=== PATIENT | male | born 1960 | race Caucasian/White ===

== ENCOUNTER 2017-09-17 15:44 | Emergency (ER) | payer OTHER, BC, SELFPAY ==
[2017-09-17] MEDS ORDERED: MORPHINE SULFATE 10 MG/ML (16:13)
[2017-09-17] MEDS: MORPHINE SULFATE 10 MG/ML IM (16:19)
[2017-09-17] MEDS ORDERED: XYLOCAINE 1%/Epi 1:100000 MDV 20 ML (16:28)
[2017-09-17] MEDS ORDERED: KEFLEX 500 MG (17:18)
[2017-09-17] MEDS ORDERED: NORCO 5/325 MG (17:19)
[2017-09-17] MEDS ORDERED: BACTRIM DS TABLET PO (17:19)
[2017-09-17] MEDS: BACTRIM DS TABLET PO (17:27)
[2017-09-17] MEDS: NORCO 5/325 MG PO (17:28)
[2017-09-17] MEDS: KEFLEX 500 MG PO (17:28)
[2017-09-17] MEDS: XYLOCAINE 1%/Epi 1:100000 MDV 20 ML IJ (17:29)
== END 2017-09-17 17:45 | disposition home or self-care (01) ==
LOC: ED 15:44
CPT/HCPCS: 87070; 96372; J2270

== ENCOUNTER 2019-12-12 18:50 | Emergency (ER) | payer OTHER ==
[2019-12-12] MEDS ORDERED: Adacel Vial IM ONE ×2 (19:19→19:25)
[2019-12-12] MEDS ORDERED: XYLOCAINE 2% HCL 20 ML MDV IJ ONE (19:20)
[2019-12-12] MEDS ORDERED: TORAdol 30 mg Injection IM ONE (19:21)
[2019-12-12] MEDS ORDERED: XYLOCAINE 1% HCL 20 ML MDV ONE (19:23)
[2019-12-12 19:24] VITALS: O2SAT 98
[2019-12-12] MEDS ORDERED: TORAdol 30 mg Injection ONE (19:25)
--- NOTE | 2019-12-12 19:40 | ERPHSYRPT ---
- History of Present Illness Time Seen by Provider: 12/12/19 19:20 Source: patient Exam Limitations: no limitations Patient Subjective Stated Complaint: pt states that he woke up monday morning with redness to left lower leg, pt states that he [facility], pt states that he was prescribed sulfamethoxaz-ole and mupirocin 2%, pt states that he has been soaking his foot in epison salt, pt states that white areas popped up last night, pt states that he has been trying to staying off it due to pain, pt states that pain is radiating to neck Triage Nursing Assessment: pt ambulated into the er, pt is axo x3, pt has redness to LLE, pustule present to left ankle area, 3 pustule present to area, pt c/o 8/10 pain to LLE, hypertensive, wheezing in all lobes, clear heart tones, hyperactive bowel sounds Physician History: Patient is a 59-year-old male presents to our ED for evaluation and treatment of the left lower leg wound which he suspects is due to an insect bite. Possible spider bite. Patient awoke Monday morning with the symptoms. Patient went [facility] yesterday. Patient was evaluated and started on Bactrim mupirocin 2%. Is also been soaking his involved extremity and Epson salt. However patient states his pain has not improved. Pain described as an ache that is well localized. No radiation. Pain worse with palpation and movement. Pain improved with rest. Patient is otherwise healthy. He voices no other complaints at this time. Timing/Duration: day(s) (Days.) Quality: other (Ache) Severity: moderate Location: other (Left posterior lateral ankle.) Possible Causes: insect bite (insect Bite suspected.), other Modifying Factors: Improves With: other (Palpation worsen symptoms.) Associated Symptoms: No difficulty breathing, No flushing, No nasal congestion, No paresthesia, No sore throat Allergies/Adverse Reactions: No Known Drug Allergies Allergy (Verified 12/12/19 19:24) Home Medications: Eszopiclone [Lunesta] 3 mg PO HS 12/12/19 [History] Levothyroxine Sodium [Synthroid] 25 mcg PO DAILY 12/12/19 [History] Meloxicam 7.5 mg PO DAILY 12/12/19 [History] Mupirocin [Bactroban OINTMENT] 22 gm TP TID 12/12/19 [History] Sulfamethoxazole/Trimethoprim [Sulfamethoxazole-Tmp Ds Tablet] 1 each PO BID 12/12/19 [History] Tizanidine HCl 4 mg [Zanaflex 4 MG] 4 mg PO HS 12/12/19 [History] Hx Tetanus, Diphtheria Vaccination/Date Given: Yes (2 yrs ago) Hx Influenza Vaccination/Date Given: No Hx Pneumococcal Vaccination/Date Given: No Travel Risk - International Travel Have you traveled outside of the country in past 3 weeks: No - Coronavirus Screening Close contact with a COVID-19 positive Pt in past 14-21 Days: No - Review of Systems Constitutional: No Symptoms, No Fever, No Chills Eyes: No Symptoms Ears, Nose, & Throat: No Symptoms Respiratory: No Symptoms, No Cough, No Dyspnea Cardiac: No Symptoms, No Chest Pain, No Edema, No Syncope Abdominal/Gastrointestinal: No Symptoms, No Abdominal Pain, No Nausea, No Vomiting, No Diarrhea Genitourinary Symptoms: No Symptoms, No Dysuria Musculoskeletal: No Symptoms, No Back Pain, No Neck Pain Skin: No Symptoms, No Rash Neurological: No Symptoms, No Dizziness, No Focal Weakness, No Sensory Changes Psychological: No Symptoms Endocrine: No Symptoms Hematologic/Lymphatic: No Symptoms All Other Systems: Reviewed and Negative - Past Medical History Pertinent Past Medical History: Yes Neurological History: No Pertinent History ENT History: No Pertinent History Cardiac History: Hypertension Respiratory History: No Pertinent History Endocrine Medical History: Hypothyroidism Musculoskeletal History: Osteoarthritis GI Medical History: No Pertinent History History: No Pertinent History Psycho-Social History: Depression, Other Male Reproductive Disorders: No Pertinent History Other Medical History: Back surgeries in 1990 and 1992. Hernia surgery December 2018 - Past Surgical History Past Surgical History: Yes Neuro Surgical History: No Pertinent History Cardiac: No Pertinent History Respiratory: No Pertinent History Gastrointestinal: Appendectomy Genitourinary: No Pertinent History Musculoskeletal: Orthopedic Surgery Male Surgical History: No Pertinent History Other Surgical History: TORN ROTATOR CUFF REPAIR A FEW YRS AGO. back surgery in 1990 and 1992 - Social History Smoking Status: Current every day smoker How long have you smoked: 40 Exposure to second hand smoke: Yes Drug Use: none Patient Lives Alone: No - Nursing Vital Signs Nursing Vital Signs: Initial Vital Signs Temperature 98.1 F 12/12/19 19:07 Pulse Rate 97 H 12/12/19 19:07 Respiratory Rate 18 12/12/19 19:07 Blood Pressure 153/115 12/12/19 19:07 O2 Sat by Pulse Oximetry 98 12/12/19 19:07 Pain Scale Pain Intensity 8 - Physical Exam General Appearance: no apparent distress, alert Eye Exam: PERRL/EOMI, eyes nml inspection Ears, Nose, Throat Exam: normal ENT inspection, pharynx normal, moist mucous membranes Neck Exam: normal inspection, non-tender, supple, full range of motion Respiratory Exam: normal breath sounds, lungs clear, No respiratory distress Cardiovascular Exam: regular rate/rhythm, normal heart sounds Gastrointestinal/Abdomen Exam: soft, mass, No tenderness Back Exam: normal inspection, normal range of motion, No CVA tenderness, No vertebral tenderness Extremity Exam: normal inspection, normal range of motion Neurologic Exam: alert, oriented x 3, cooperative, normal mood/affect, sensation nml, No motor deficits Skin Exam: normal color, warm, dry, other (Left posterior lateral ankle presents with a 1.5 cm abscess with fluctuance. There are pustules at the surface. No lymphangitis. No lymphadenopathy. The area is tender. Extremities neurovascular intact distally no crepitus or indication of subcutaneous emphysema..) Lymphatic Exam: No adenopathy SpO2 Interpretation: normal SpO2: 98 O2 Delivery: Room Air Procedures - Incision and Drainage Site: Left posterior lateral ankle. Anesthesia: 1% Lidocaine cc's of anesthesia: 4 Blade Size: 11 I & D Procedure: betadine prep Results: small amount pus Progress: Patient tolerated procedure well. No complications. Patient neurovascular intact distally post procedure. - Course Nursing assessment & vital signs reviewed: Yes Ordered Tests: Active Orders 24 hr Category Date Time Status CULTURE,ABSCESS Stat Lab 12/12/19 Uncollected Medication Summary Discontinued Medications Generic Name Dose Route Start Last Admin Trade Name Freq PRN Reason Stop Dose Admin Diphtheria/Tetanus/Acell Pertussis 0.5 ml 12/12/19 19:19 12/12/19 19:30 Adacel Vial IM 12/12/19 19:20 0.5 ml .ONCE ONE Administration Diphtheria/Tetanus/Acell Pertussis Confirm 12/12/19 19:25 Adacel Vial Administered 12/12/19 19:26 Dose 0.5 ml IM .STK-MED ONE Ketorolac Tromethamine 30 mg 12/12/19 19:21 12/12/19 19:29 Toradol 30 Mg Injection IM 12/12/19 19:22 30 mg STAT ONE Administration Ketorolac Tromethamine Confirm 12/12/19 19:25 Toradol 30 Mg Injection Administered 12/12/19 19:26 Dose 30 mg .ROUTE .STK-MED ONE Lidocaine HCl 5 ml 12/12/19 19:20 12/12/19 19:31 Xylocaine 2% Hcl 20 Ml Mdv IJ 12/12/19 19:21 Not Given STAT ONE Lidocaine HCl Confirm 12/12/19 19:23 Xylocaine 1% Hcl 20 Ml Mdv Administered 12/12/19 19:24 Dose 10 ml .ROUTE .STK-MED ONE - Progress Progress: improved Progress Note: 12/12/19 19:47 59-year-old male with a wound to the left lateral ankle presumably from an insect bite. Wound is well localized. No lymphangitis no lymphadenopathy. Patient received Toradol for pain control. Tetanus was updated. Patient currently on Bactrim. Patient advised to continue taking the Bactrim as prescribed. The wound was incised and drained. Scant amount of purulent material expressed. Cultures obtained and forwarded for culture and sensitivity. Wound is dressed. Patient neurovascular intact post procedure. Plan of care discussed with patient. He agrees to follow-up with his primary care physician on Monday as currently scheduled. Counseled pt/family regarding: diagnosis, need for follow-up - Departure Departure Disposition: Home Clinical Impression: Abscess, Insect bite Condition: Stable Critical Care Time: No Referrals: YA CARDONA [Primary Care Provider] - Additional Instructions: Discharge/Care Plan JUMA CANALESAN was seen on 12/12/19 in the Emergency Room. The patient was counseled regarding Diagnosis,Lab results, Imaging studies, need for follow up and when to return to the Emergency Room. Prescriptions given: Discharge Note I have spoken with the patient and/or caregivers. I have explained the patient's condition, diagnosis and treatment plan based on the information available to me at this time. I have answered the patient's and/or caregiver's questions and addressed any concerns. The patient and/or caregivers have as good understanding of the patient's diagnosis, condition and treatment plan as can be expected at this point. The vital signs have been stable. The patient's condition is stable and appropriate for discharge from the emergency department. The patient will pursue further outpatient evaluation with the primary care physician or other designated or consulting physician as outlined in the discharge instructions. The patient and/or caregivers are agreeable to this plan of care and follow-up instructions have been explained in detail. The patient and/or caregivers have received these instruction. The patient/and or caregivers are aware that any significant change in condition or worsening of symptoms should prompt an immediate return to this or the closest emergency department or call 911.
[2019-12-12 19:52] VITALS: BP 153/75; PULSE 83
== END 2019-12-12 19:52 | disposition home or self-care (01) ==
LOC: ED 18:50
DX: L02.416 Cutaneous abscess of left lower limb (principal); S90.562A Insect bite (nonvenomous), left ankle, initial encounter
CPT/HCPCS: 87070; 90471; 90715; 96372; 99284; J1885

== ENCOUNTER 2020-05-22 19:48 | Emergency (ER) | payer OTHER ==
[2020-05-22] MEDS ORDERED: BENADRYL 50 MG/ML IV ONE (20:04)
[2020-05-22] MEDS ORDERED: Inapsine 5 MG/2 ML IV ONE (20:04)
[2020-05-22] MEDS ORDERED: Sodium Chloride 0.9% 1000 ML 1,000 ML IV STA (20:04)
[2020-05-22] MEDS ORDERED: TORAdol 30 mg Injection IV ONE (20:04)
[2020-05-22 20:09] VITALS: PULSE 86; O2SAT 99
[2020-05-22] MEDS ORDERED: TORAdol 30 mg Injection ONE (20:15)
[2020-05-22] MEDS ORDERED: Inapsine 5 MG/2 ML ONE (20:15)
[2020-05-22] MEDS ORDERED: BENADRYL 50 MG/ML ONE (20:15)
[2020-05-22] MEDS ORDERED: Sodium Chloride 0.9% 1000 ML 1,000 ML ONE (20:15)
--- NOTE | 2020-05-22 20:16 | ERPHSYRPT ---
- History of Present Illness Time Seen by Provider: 05/22/20 19:52 Source: patient Exam Limitations: no limitations Patient Subjective Stated Complaint: "I've been constipated and now my stomach hurts." Triage Nursing Assessment: . Physician History: Patient is here with abdominal pain and constipation. Has been going on for greater than 1 week. He has 1 previous emergency department visit at [place]. States that they performed a CT scan 1 week ago. They did not find anything. He had a colonoscopy done in January,. He states he had this done because he has been having continuing ongoing chronic abdominal pain with intermittent constipation. Last bowel movement was yesterday it was only a very little bit. Patient has been doing MiraLAX. Location: abdomen Quality: sharp Radiation: into back Severity: moderate Duration: acute on chronic Timing: gradual Modifying factors/associated signs and symptoms: home miralax, previous ER visit Timing/Duration: today Severity: moderate Modifying Factors: Improves With: movement Associated Symptoms: nausea, abdominal pain Allergies/Adverse Reactions: No Known Drug Allergies Allergy (Verified 05/22/20 19:59) Home Medications: Eszopiclone [Lunesta] 3 mg PO HS 12/12/19 [History] Levothyroxine Sodium [Synthroid] 25 mcg PO DAILY 12/12/19 [History] Meloxicam 7.5 mg PO DAILY 12/12/19 [History] Hx Tetanus, Diphtheria Vaccination/Date Given: Yes Hx Influenza Vaccination/Date Given: No Hx Pneumococcal Vaccination/Date Given: No Travel Risk - International Travel Have you traveled outside of the country in past 3 weeks: No - Coronavirus Screening Are you exhibiting any of the following symptoms?: No Close contact with a COVID-19 positive Pt in past 14-21 Days: No - Review of Systems Constitutional: No Fever, No Chills Eyes: No Symptoms Ears, Nose, & Throat: No Symptoms Respiratory: No Cough, No Dyspnea Cardiac: No Chest Pain, No Edema, No Syncope Abdominal/Gastrointestinal: Abdominal Pain, Nausea, Constipation, No Vomiting, No Diarrhea Genitourinary Symptoms: No Dysuria Musculoskeletal: No Back Pain, No Neck Pain Skin: No Rash Neurological: No Dizziness, No Focal Weakness, No Sensory Changes Psychological: No Symptoms Endocrine: No Symptoms All Other Systems: Reviewed and Negative - Past Medical History Pertinent Past Medical History: Yes Neurological History: No Pertinent History ENT History: No Pertinent History Cardiac History: Hypertension Respiratory History: No Pertinent History Endocrine Medical History: Hypothyroidism Musculoskeletal History: Osteoarthritis GI Medical History: No Pertinent History History: No Pertinent History Psycho-Social History: Depression, Other Male Reproductive Disorders: No Pertinent History Other Medical History: Back surgeries in 1990 and 1992. Hernia surgery December 2018. polycythemia - Past Surgical History Past Surgical History: Yes Neuro Surgical History: No Pertinent History Cardiac: No Pertinent History Respiratory: No Pertinent History Gastrointestinal: Appendectomy Genitourinary: No Pertinent History Musculoskeletal: Orthopedic Surgery Male Surgical History: No Pertinent History Other Surgical History: TORN ROTATOR CUFF REPAIR A FEW YRS AGO. back surgery in 1990 and 1992 - Social History Smoking Status: Current every day smoker How long have you smoked: 40 Exposure to second hand smoke: Yes Drug Use: marijuana Patient Lives Alone: No - Nursing Vital Signs Nursing Vital Signs: Initial Vital Signs Temperature 98.5 F 05/22/20 19:48 Pulse Rate 86 05/22/20 19:48 Respiratory Rate 18 05/22/20 19:48 Blood Pressure 186/107 05/22/20 19:48 O2 Sat by Pulse Oximetry 99 05/22/20 19:48 Pain Scale Pain Intensity 2 - Physical Exam General Appearance: no apparent distress, alert Eye Exam: PERRL/EOMI, eyes nml inspection Ears, Nose, Throat Exam: normal ENT inspection, TMs normal, pharynx normal, moist mucous membranes Neck Exam: normal inspection, non-tender, supple, full range of motion Respiratory Exam: normal breath sounds, lungs clear, No respiratory distress Cardiovascular Exam: regular rate/rhythm, normal heart sounds, normal peripheral pulses Gastrointestinal/Abdomen Exam: soft, normal bowel sounds, tenderness (Left lower abdominal tenderness without rebound or guarding.), No mass Back Exam: normal inspection, normal range of motion, No CVA tenderness, No vertebral tenderness Extremity Exam: normal inspection, normal range of motion, pelvis stable Neurologic Exam: alert, oriented x 3, cooperative, normal mood/affect, nml cerebellar function, nml station & gait, sensation nml, No motor deficits Skin Exam: normal color, warm, dry, No rash Lymphatic Exam: No adenopathy SpO2: 99 - Course Nursing assessment & vital signs reviewed: Yes EKG Interpreted by Me: Sinus Rhythm Ordered Tests: Active Orders 24 hr Category Date Time Status EKG-ER Only STAT Care 05/22/20 20:04 Active IV Insertion STAT Care 05/22/20 20:04 Active ABDOMEN AND PELVIS W CONTRAST [CT] Stat Exams 05/22/20 20:05 Taken CBC W DIFF Stat Lab 05/22/20 20:04 Completed CMP Stat Lab 05/22/20 20:04 Completed LIPASE Stat Lab 05/22/20 20:04 Completed TROPONIN Q3H Lab 05/22/20 20:15 Completed TROPONIN Q3H Lab 05/22/20 23:15 Ordered TROPONIN Q3H Lab 05/23/20 02:15 Ordered TROPONIN Q3H Lab 05/23/20 05:15 Ordered TROPONIN Q3H Lab 05/23/20 08:15 Ordered UA W/RFX UR CULTURE Stat Lab 05/22/20 20:04 Ordered Medication Summary Discontinued Medications Generic Name Dose Route Start Last Admin Trade Name Freq PRN Reason Stop Dose Admin Diphenhydramine HCl 25 mg 05/22/20 20:04 05/22/20 20:19 Benadryl 50 Mg/Ml IV 05/22/20 20:05 25 mg STAT ONE Administration Diphenhydramine HCl Confirm 05/22/20 20:15 Benadryl 50 Mg/Ml Administered 05/22/20 20:16 Dose 50 mg .ROUTE .STK-MED ONE Droperidol 1.25 mg 05/22/20 20:04 05/22/20 20:18 Inapsine 5 Mg/2 Ml IV 05/22/20 20:05 1.25 mg STAT ONE Administration Droperidol Confirm 05/22/20 20:15 Inapsine 5 Mg/2 Ml Administered 05/22/20 20:16 Dose 5 mg .ROUTE .STK-MED ONE Sodium Chloride 1,000 mls @ 999 mls/hr 05/22/20 20:04 05/22/20 20:17 Sodium Chloride 0.9% 1000 Ml IV 05/22/20 21:04 999 mls/hr .Q1H1M STA Administration Sodium Chloride Confirm 05/22/20 20:15 Sodium Chloride 0.9% 1000 Ml Administered 05/22/20 20:16 Dose 1,000 mls @ ud .ROUTE .STK-MED ONE Ketorolac Tromethamine 30 mg 05/22/20 20:04 05/22/20 20:17 Toradol 30 Mg Injection IV 05/22/20 20:05 30 mg STAT ONE Administration Ketorolac Tromethamine Confirm 05/22/20 20:15 Toradol 30 Mg Injection Administered 05/22/20 20:16 Dose 30 mg .ROUTE .STK-MED ONE Lab/Rad Data: Laboratory Result Diagrams 05/22/20 20:04 05/22/20 20:04 Laboratory Results 05/22/20 05/22/20 05/22/20 Range/Units 20:15 20:04 20:04 WBC 10.6 H (4.0-10.5) K/mm3 RBC 5.52 (4.1-5.6) M/mm3 Hgb 17.3 (12.5-18.0) gm/dl Hct 51.2 H (42-50) % MCV 92.8 (78-100) fl MCH 31.3 (26-32) pg MCHC 33.8 (32-36) g/dl RDW 13.5 (11.5-14.0) % Plt Count 301 (150-450) K/mm3 MPV 8.9 (7.5-11.0) fl Gran % 64.1 (36.0-66.0) % Eos # (Auto) 0.28 (0-0.5) Absolute Lymphs (auto) 2.73 (1.0-4.6) Absolute Monos (auto) 0.76 (0.0-1.3) Lymphocytes % 25.7 (24.0-44.0) % Monocytes % 7.2 (0.0-12.0) % Eosinophils % 2.6 (0.00-5.0) % Basophils % 0.4 (0.0-0.4) % Absolute Granulocytes 6.80 (1.4-6.9) Basophils # 0.04 (0-0.4) Sodium 136 L (137-145) mmol/L Potassium 4.8 (3.5-5.1) mmol/L Chloride 107 (98-107) mmol/L Carbon Dioxide 24 (22-30) mmol/L Anion Gap 10.2 (5-15) MEQ/L BUN 17 (9-20) mg/dL Creatinine 0.79 (0.66-1.25) mg/dL Estimated GFR > 60.0 ML/MIN Glucose 98 (74-106) mg/dL Calcium 9.1 (8.4-10.2) mg/dL Total Bilirubin 0.70 (0.2-1.3) mg/dL AST 27 (17-59) U/L ALT 10 (0-50) U/L Alkaline Phosphatase 76 (38-126) U/L Troponin I < 0.012 (0.000-0.034) ng/mL Serum Total Protein 7.9 (6.3-8.2) g/dL Albumin 4.6 (3.5-5.0) g/dL Lipase 67 (23-300) U/L - Progress Progress Note: 05/22/20 20:15 differential diagnosis includes kidney stone, compression fracture, infection, UTI, triple AAA - basic labs including: CBC, lipase, CMP, - insert IV for fluids, pain meds, nausea control - consider imaging: CT ab/pelvis 05/22/20 21:58 CT scan shows no obstruction, constipation, obvious cancer, other mechanical issue. I did recommend patient follow back up with his GI physician, primary care physician. He will need to return here for any new or changing symptoms. Overall patient's pain is improved on reexam. Plan of care was discussed with patient and all questions answered. The patient is agreeable to be discharged home and both verbal and printed discharge instructions were provided.The patient agreed to seek outpatient follow up as discussed. The patient was given strict instructions to return to the emergency department for worsening symptoms or any other emergent concerns. The patient verbalized understanding. Counseled pt/family regarding: lab results, diagnosis, need for follow-up - Departure Departure Disposition: Home Clinical Impression: Constipation Condition: Stable Critical Care Time: No Referrals: [facility] [Primary Care Provider] - Instructions: Constipation, Adult (DC)
[2020-05-22 20:18] LABS: BASOPHIL % 0.4 % (0.0-0.4); Basophil (Absolute #) 0.04 (0-0.4); Eosinophil % 2.6 % (0.00-5.0); Eosinophil (Absolute #) 0.28 (0-0.5); Hematocrit 51.2 % (42-50); Hemoglobin 17.3 gm/dl (12.5-18.0); Lymphocyte (Absolute #) 2.73 (1.0-4.6); Lymphocytes % 25.7 % (24.0-44.0); Mean Cell Volume 92.8 fl (78-100); Mean Corpuscular Hemoglobin 31.3 pg (26-32); Mean Corpuscular Hgb Concent. 33.8 g/dl (32-36); Mean Platelet Volume 8.9 fl (7.5-11.0); Monocyte (Absolute #) 0.76 (0.0-1.3); Monocytes % 7.2 % (0.0-12.0); Neutrophil % 64.1 % (36.0-66.0); Platelet Count 301 K/mm3 (150-450); Red Blood Count 5.52 M/mm3 (4.1-5.6); Red Cell Distribution Width 13.5 % (11.5-14.0); White Blood Count 10.6 K/mm3 (4.0-10.5)
[2020-05-22 20:29] LABS: ALBUMIN 4.6 g/dL (3.5-5.0); ALKALINE PHOSPHATASE 76 U/L (38-126); ANION GAP 10.2 MEQ/L (5-15); BLOOD UREA NITROGEN 17 mg/dL (9-20); CHLORIDE 107 mmol/L (98-107); Calcium 9.1 mg/dL (8.4-10.2); Carbon Dioxide 24 mmol/L (22-30); Creatinine 1 0.79 mg/dL (0.66-1.25); EST GLOMERULAR FILTRATION RATE > 60.0 ML/MIN; Glucose 98 mg/dL (74-106); LIPASE 67 U/L (23-300); Potassium 4.8 mmol/L (3.5-5.1); SGOT/AST 27 U/L (17-59); SGPT/ALT 10 U/L (0-50); SODIUM 136 mmol/L (137-145); Total Protein 7.9 g/dL (6.3-8.2)
[2020-05-22 21:54] VITALS: BP 161/91
--- NOTE | 2020-05-23 07:54 | XRAY ---
Indication: Left upper quadrant pain. Abnormal bowel movements. Multiple contiguous axial images obtained through the abdomen and pelvis using 80 cc of Isovue-370 contrast only. Comparison: CT renal stone study September 08, 2010. Lung bases demonstrates mild bibasilar dependent atelectasis. No infiltrate or effusion. Heart is not enlarged. Visualized distal esophagus demonstrates circumferential wall thickening, possible reflux esophagitis. Noncontrasted stomach and bowel loops appear nonobstructed. Appendectomy reported. Scattered descending and sigmoid diverticulosis. No free fluid/air. A few bilateral renal cysts, largest right lower pole measuring 1.5 cm. Remaining liver, gallbladder, pancreas, spleen, adrenal glands, kidneys, ureters, and bladder are unremarkable. Moderate scattered aortoiliac calcifications. No AAA or pathological retroperitoneal lymphadenopathy. Osseous structures intact again with minimal degenerative changes throughout the spine, L5 laminectomy, and minimal grade 1 L5 spondylolisthesis. Impression: 1. Distal esophageal wall thickening. Rule out reflux esophagitis. 2. Incidental colonic diverticulosis, bilateral renal cysts, and chronic bony findings. 3. Remaining CT abdomen/pelvis with contrast exam is negative. Comment: Preliminary interpretation was made by [facility]. No critical discrepancy.
== END 2020-05-22 22:02 | disposition home or self-care (01) ==
LOC: ED 19:48
DX: K59.00 Constipation, unspecified (principal)
CPT/HCPCS: 36000; 36415; 74177; 80053; 83690; 84484; 85025; 93005; 96360; 96374; 96375; 99284; J1200; J1885

== ENCOUNTER 2021-04-14 09:27 | Day surgery (SDC) | payer OTHER ==
[2021-04-14] MEDS ORDERED: BUPIVACAINE 0.5% VIAL IJ ONE (09:28)
[2021-04-14] MEDS ORDERED: Depo-Medrol 40 MG/ML IM ONE (09:28)
[2021-04-14] MEDS ORDERED: Lactated Ringers 1,000 ML IV ONE (10:44)
[2021-04-14] MEDS ORDERED: DIPRIVAN 200 MG/20 ML IV ONE (11:21)
--- NOTE | 2021-04-14 13:00 | XRAY ---
Indication: Right SI joint injection. Intraoperative fluoroscopy provided for 14 seconds. Single lateral digital spot image submitted for interpretation demonstrates posterior needle tip projecting mid sacrum. Correlate with intraoperative findings/report.
--- NOTE | 2021-04-14 13:00 | XRAY ---
14 seconds fluoroscopy time in surgery for injection of the right SI joint.
== END 2021-04-14 11:45 | disposition home or self-care (01) ==
LOC: SDC-PAIN 09:27
PROVIDERS: ATTEND Psychiatry & Neurology Pain Medicine
DX: M46.1 Sacroiliitis, not elsewhere classified (principal); I10 Essential (primary) hypertension; E03.9 Hypothyroidism, unspecified; M19.90 Unspecified osteoarthritis, unspecified site; Z79.899 Other long term (current) drug therapy
CPT/HCPCS: 27096; 72020; 77002; G0260; J1030; J2704

== ENCOUNTER 2021-05-05 13:15 | Day surgery (SDC) | payer OTHER ==
[2021-05-05] MEDS ORDERED: Sodium Chloride 0.9% 10 ML FLUSH Syringe IJ ONE (13:16)
[2021-05-05] MEDS ORDERED: Depo-Medrol 40 MG/ML IM ONE (13:16)
[2021-05-05] MEDS ORDERED: DIPRIVAN 200 MG/20 ML IV ONE (14:47)
[2021-05-05] MEDS ORDERED: Lactated Ringers 1,000 ML IV ONE ×2 (14:50→15:28)
--- NOTE | 2021-05-05 16:40 | XRAY ---
Indication: Right L3-L5 transforaminal LOLITA. Intraoperative fluoroscopy provided for 24 seconds. 3 digital spot images submitted for interpretation demonstrates posterior needle tips projecting over the expected right L3 and L4 nerve roots. Small amount of contrast injected for needle tip placement. Correlate with intraoperative findings/report.
--- NOTE | 2021-05-05 16:44 | XRAY ---
24 seconds fluoroscopy time in surgery for right L3-L5 transforaminal LOLITA.
== END 2021-05-05 15:13 | disposition home or self-care (01) ==
LOC: SDC-PAIN 13:15
PROVIDERS: ATTEND Psychiatry & Neurology Pain Medicine
DX: M54.16 Radiculopathy, lumbar region (principal); I10 Essential (primary) hypertension; E03.9 Hypothyroidism, unspecified; Z79.899 Other long term (current) drug therapy
CPT/HCPCS: 64483; 64484; 72100; 77003; J1030; J2704; Q9966

== ENCOUNTER 2021-05-20 07:42 | Day surgery (SDC) | payer OTHER ==
[2021-05-20] MEDS ORDERED: Sodium Chloride 0.9% 10 ML FLUSH Syringe IJ ONE (07:43)
[2021-05-20] MEDS ORDERED: Depo-Medrol 40 MG/ML IM ONE (07:43)
[2021-05-20] MEDS ORDERED: Lactated Ringers 1,000 ML IV ONE (08:27)
[2021-05-20] MEDS ORDERED: DIPRIVAN 200 MG/20 ML IV ONE (09:14)
--- NOTE | 2021-05-20 09:49 | XRAY ---
Indication: Right L3-L5 transforaminal LOLITA. Intraoperative fluoroscopy provided for 26 seconds. 3 digital spot image submitted for interpretation demonstrates posterior needle tips projecting over the expected right L3 and L4 nerve roots. Small amount of contrast injected for needle tip placement. Correlate with intraoperative findings/report.
--- NOTE | 2021-05-20 10:40 | XRAY ---
26 seconds fluoroscopy time in surgery for right L3-L5 transforaminal LOLTIA.
== END 2021-05-20 09:40 | disposition home or self-care (01) ==
LOC: SDC-PAIN 07:42
PROVIDERS: ATTEND Psychiatry & Neurology Pain Medicine
DX: M54.16 Radiculopathy, lumbar region (principal); I10 Essential (primary) hypertension; Z79.899 Other long term (current) drug therapy
CPT/HCPCS: 64493; 64494; 72100; 77002; J1030; J2704; Q9966

== ENCOUNTER 2022-06-08 08:29 | Day surgery (SDC) | payer OTHER ==
[2022-06-08] MEDS ORDERED: Depo-Medrol 40 MG/ML IM ONE (08:30)
[2022-06-08] MEDS ORDERED: Sodium Chloride 0.9(Preservative Free) 10 ML IJ ONE (08:30)
[2022-06-08] MEDS ORDERED: DIPRIVAN 200 MG/20 ML IV ONE (10:00)
--- NOTE | 2022-06-08 10:49 | XRAY ---
Indication: Right L3-L5 transforaminal LOLITA. Intraoperative fluoroscopy provided for 35 seconds. 5 digital spot images submitted for interpretation demonstrates posterior needle tips projecting over the expected right L3 and L4 nerve roots. Small amount of contrast injected for needle tip placement. Correlate with intraoperative findings/report.
--- NOTE | 2022-06-08 12:22 | XRAY ---
35 seconds of fluoroscopy was used in surgery for a right L3-L5 transforaminal LOLITA.
[2022-06-08] MEDS ORDERED: Lactated Ringers 1,000 ML IV ONE (15:27)
== END 2022-06-08 10:30 | disposition home or self-care (01) ==
LOC: SDC-PAIN 08:29
PROVIDERS: ATTEND Psychiatry & Neurology Pain Medicine
DX: M54.16 Radiculopathy, lumbar region (principal); Z79.899 Other long term (current) drug therapy
CPT/HCPCS: 64483; 64484; 72100; 77003; J1030; J2704; Q9966

== ENCOUNTER 2022-06-22 10:22 | Day surgery (SDC) | payer OTHER ==
[2022-06-22] MEDS ORDERED: Sodium Chloride 0.9(Preservative Free) 10 ML IJ ONE (10:23)
[2022-06-22] MEDS ORDERED: Depo-Medrol 40 MG/ML IM ONE (10:23)
[2022-06-22] MEDS ORDERED: DIPRIVAN 200 MG/20 ML IV ONE (12:23)
--- NOTE | 2022-06-22 13:18 | XRAY ---
Indication: Right L3-L5 transforaminal LOLITA. Intraoperative fluoroscopy provided for 32 seconds. 5 digital spot images submitted for interpretation demonstrates posterior needle tips projecting over the expected right L3 and L4 nerve roots. Small amount of contrast injected for needle tip placement. Correlate with intraoperative findings/report.
--- NOTE | 2022-06-22 13:46 | XRAY ---
32 seconds of fluoroscopy was used in surgery for a right L3-L5 transforaminal LOLITA.
[2022-06-22] MEDS ORDERED: Lactated Ringers 1,000 ML IV ONE (14:07)
== END 2022-06-22 12:57 | disposition home or self-care (01) ==
LOC: SDC-PAIN 10:22
PROVIDERS: ATTEND Psychiatry & Neurology Pain Medicine
DX: M54.16 Radiculopathy, lumbar region (principal); Z79.899 Other long term (current) drug therapy
CPT/HCPCS: 64483; 64484; 72100; 77003; J1030; J2704; Q9966

== ENCOUNTER 2024-06-12 11:39 | Day surgery (SDC) | payer OTHER ==
[2024-06-12] MEDS ORDERED: propofoL IV ONE (13:09)
[2024-06-12] MEDS ORDERED: MORPHINE SULFATE 2 MG INJ ONE ×2 (13:52→14:10)
--- NOTE | 2024-06-12 14:21 | XRAY ---
Indication: Right L3-L5 transforaminal LOLITA. Intraoperative fluoroscopy provided for 54 seconds. 7 digital spot images submitted for interpretation demonstrates posterior needle tips projecting over the expected right L3 and L4 nerve roots. Small amount of contrast injected for needle tip placement. Correlate with intraoperative findings/report.
--- NOTE | 2024-06-12 14:57 | XRAY ---
54 seconds of fluoroscopy was used in surgery for a right L3-L5 transforaminal LOLITA.
== END 2024-06-12 14:30 | disposition home or self-care (01) ==
LOC: SDC-PAIN 11:39
PROVIDERS: ATTEND Psychiatry & Neurology Pain Medicine
DX: M54.16 Radiculopathy, lumbar region (principal)
CPT/HCPCS: 64483; 64484; 72100; 77003; J2270; J2704; Q9966

== ENCOUNTER 2025-05-08 08:08 | Day surgery (SDC) | payer OTHER ==
--- NOTE | 2025-05-07 21:19 | HP ---
HISTORY OF PRESENT ILLNESS: The patient is a 64-year-old male, presents with a 5-year followup history of polyps and family history of colon cancer. Looks like his sister had colon cancer. He has no other issues at this time. PAST MEDICAL HISTORY: Depression, hyperlipidemia, anxiety, insomnia, thyroid. HOME MEDICATIONS: Aspirin, hydrochlorothiazide, naproxen, hydrocodone, cyclobenzaprine. ALLERGIES: None reported. PAST SURGICAL HISTORY: Appendectomy, rotator cuff, back surgery, inguinal hernia. SOCIAL HISTORY: Current every day smoker. FAMILY HISTORY: Colon cancer. REVIEW OF SYSTEMS: CONSTITUTIONAL: Denies fever or chills. CHEST: Denies shortness of breath. CARDIOVASCULAR: Denies chest pain. ABDOMEN: Denies abdominal pain. PHYSICAL EXAMINATION: GENERAL: No acute distress. CARDIOVASCULAR: Regular rate and rhythm. RESPIRATORY: Nonlabored. No shortness of breath. ABDOMEN: Soft. IMPRESSION: History of polyps, family history of colon cancer. PLAN: Colonoscopy with Dr. Jaziel Kingsley. This report was dictated for Dr. Jaziel Kingsley by Elham Reeves NP
[2025-05-08] MEDS ORDERED: Lactated Ringers 1,000 ML IV ONE (08:35)
[2025-05-08 08:54] VITALS: RESP 16
[2025-05-08] MEDS: Lactated Ringers 1,000 ML IV SCH (09:01)
[2025-05-08 09:03] LABS: Calcium 10.0 mg/dL (8.4-10.2); Carbon Dioxide 20.0 mmol/L (22-30); Creatinine 1 1.07 mg/dL (0.66-1.25); EST GLOMERULAR FILTRATION RATE 77.5 ML/MIN; Glucose 108.0 mg/dL (74-106); Potassium 3.7 mmol/L (3.5-5.1)
[2025-05-08] MEDS ORDERED: propofoL IV ONE ×2 (11:00→11:20)
[2025-05-08 11:57] VITALS: TEMP 97.1
[2025-05-08 12:13] VITALS: BP 121/72; PULSE 66; O2SAT 98
--- NOTE | 2025-05-09 16:28 | OP ---
SURGERY DATE/TIME: 05/08/2025 [id number] PREOPERATIVE DIAGNOSIS: A 5-year followup for [facility]. POSTOPERATIVE DIAGNOSIS: Scope limited to 20 cm. There was a 1.5 cm polyp just above the rectosigmoid junction in the distal sigmoid that was pounding out right in a diverticulum. There were multiple large diverticula, multiple smaller diverticula and marked annulation and the scope could not be passed past 20 cm. The polyp was more at 16 cm, about 1.5 cm and it did have a little bit of a base, so it almost looked bigger than it was but it was basically not approachable today endoscopically and then we could not go farther today endoscopically. A limited sigmoid resection might be in order for him. We will see him back in the office and talk to him about options. [facility] may [facility] if he is having a major surgical intervention.
== END 2025-05-08 12:34 | disposition home or self-care (01) ==
LOC: SDC 08:08
PROVIDERS: ATTEND Surgery
DX: Z09 Encounter for follow-up examination after completed treatment for conditions other than malignant neoplasm (principal); Z86.0100 Personal history of colon polyps, unspecified; Z80.0 Family history of malignant neoplasm of digestive organs; K63.5 Polyp of colon; K57.30 Diverticulosis of large intestine without perforation or abscess without bleeding